=== PATIENT | female | born 1950 | race Caucasian/White ===

== ENCOUNTER → 2018-07-01 12:37 | Emergency (ER) | payer MEDICARE, OTHER ==
--- NOTE | 2018-07-01 15:57 | ED ---
Skin Complaint - HPI Summary HPI Summary: A 67 y/o F presents to ED with rash on L middle back onset 06/25/18. The area is erythematous, pruritic and painful. There are two scabbed areas. Associated sx: back pain wrapping around L-side. Denies fever, CP, cough, n/v, abd pain. Alleviating factors: Tylenol to mild relief. Patient went to get the shingles vaccination, but was unable to get it due to the cost. PMHx: HTN, DM, GERD. Takes Metformin BID, Pepcid 20 BID, and HTN medication. She sees Dr. Lujan, PCP. Vitals at bedside: 85 bpm, BP: 160/95; Sat O2: 99%. Home Medications Medication Instructions Recorded Confirmed Type HYDROcodone/ACETAMIN 5-325 MG* 1 tab PO Q6H PRN #12 tab MDD 4 07/01/18 Rx [[place] 5-325 TAB*] ValACYclovir (*) [Valtrex 1 GM(*)] 1 gm PO TID #21 tab 07/01/18 Rx - History of Current Complaint Chief Complaint: EDRashSkinAbscess Time Seen by Provider: 07/01/18 15:36 Stated Complaint: INFECTION ON BACK PER PT Hx Obtained From: Patient Onset/Duration: Started Days Ago - 06/25/18, Atraumatic, Still Present Skin Exposure Onset/Duration: Days Ago - 06/25/18 Timing: Constant Onset Severity: Moderate Current Severity: Moderate Pain Intensity: 6 Pain Scale Used: 0-10 Numeric Skin Location: Other: - back on L Character: Pruritus, Pain, Redness Aggravating Symptom(s): Nothing Alleviating Symptom(s): OTC Meds - Tylenol - Allergy/Home Medications Allergies/Adverse Reactions: Allergies Allergy/AdvReac Type Severity Reaction Status Date / Time No Known Allergies Allergy Verified 07/01/18 16:17 PMH/Surg Hx/FS Hx/Imm Hx Previously Healthy: No Endocrine/Hematology History: Reports: Hx Diabetes Cardiovascular History: Reports: Hx Hypertension GI History: Reports: Hx Gastroesophageal Reflux Disease Opthamlomology History: Denies: Hx Legally Blind EENT History: Denies: Hx Deafness Neurological History: Denies: Hx Dementia - Cancer History Hx Chemotherapy: No Hx Radiation Therapy: No - Surgical History Surgery Procedure, Year, and Place: , 33 years ago. R breast biopsy ( negative) Infectious Disease History: No Infectious Disease History: Denies: Traveled Outside the [place] in Last 30 Days - Family History Known Family History: Positive: Diabetes - brothers Family History: neg: Breast CA. pos: shingles - Social History Occupation: Retired Lives: With Family Alcohol Use: None Hx Substance Use: No Substance Use Type: Reports: None Hx Tobacco Use: No Smoking Status (MU): Never Smoked Tobacco Review of Systems Negative: Fever Negative: Chest Pain Negative: Cough Negative: Abdominal Pain, Vomiting, Nausea Positive: Rash - pain, itchy, red and with two scabs All Other Systems Reviewed And Are Negative: Yes Physical Exam - Summary Physical Exam Summary: Appearance: Ill-appearing, moderate pain distress, well-nourished Skin: Warm, color reflects adequate perfusion, dry. Two scabbed lesions and one pustule in the dermatone of L ribs on L posterior aspect. Head: Normal Head/Face inspection, atraumatic Eyes: Conjunctiva clear ENT: Normal inspection Neck: Supple, no nodes, no JVD Respiratory: Lungs clear, normal breath sounds, no respiratory distress Cardio: RRR, No murmur, pulses normal, brisk capillary refill Abdomen: Soft, nontender Musculoskeletal: Strength Intact/ROM intact, no calf tenderness, no edema. Psychological: Normal Neuro: Alert, muscle tone normal, no focal deficit Triage Information Reviewed: Yes Vital Signs On Initial Exam: Initial Vitals Temp Pulse Resp BP Pulse Ox 98.0 F 99 16 155/97 99 07/01/18 12:42 07/01/18 12:42 07/01/18 12:42 07/01/18 12:42 07/01/18 12:42 Vital Signs Reviewed: Yes Diagnostics - Vital Signs Vital Signs Temp Pulse Resp BP Pulse Ox 07/01/18 14:44 98.0 F 75 16 145/65 98 07/01/18 12:42 98.0 F 99 16 155/97 99 - Laboratory Lab Statement: Any lab studies that have been ordered have been reviewed, and results considered in the medical decision making process. Re-Evaluation - Re-Evaluation 1 Re-Evaluation Time: 16:22 Change: Unchanged Comment: Discussing findings and dx with now present. Course/Dx - Course Course Of Treatment: Patient is a 67 y/o F presenting with red, itchy and painful rash on L middle back onset 06/25/18. Associated sx: back pain wrapping around L-side. PE finds two scabbed lesions and one pustule in the dermatone of L ribs on L posterior aspect. POC glucose: 124. Allergies noted, high blood pressure noted. Pt medications reviewed this visit. Nurses note reviewed. Checked I-STOP. Will discharge patient home with Percocet for pain and to follow up with Dr. Lujan. - Diagnoses Provider Diagnoses: Herpes zoster infection of thoracic region, Poor high blood pressure control Discharge - Sign-Out/Discharge Documenting (check all that apply): Patient Departure - D/C Patient Received Moderate/Deep Sedation with Procedure: No - Discharge Plan Condition: Stable Disposition: HOME Prescriptions: HYDROcodone/ACETAMIN 5-325 MG* [[place] 5-325 TAB*] 1 tab PO Q6H PRN #12 tab MDD 4 PRN Reason: Pain ValACYclovir (*) [Valtrex 1 GM(*)] 1 gm PO TID #21 tab Patient Education Materials: Shingles (ED) Referrals: Cherelle Lujan DO [Primary Care Provider] - 2 Days Additional Instructions: You rash on the left side of your back was diagnosed as shingles today. The medical name is Herpes Zoster. Dr. Latif has prescribed valacyclovir that you should take 3 times a day for a week. This will help lessen the duration and severity of the shingles. Your diabetes was in good control, despite this infection. Your glucose was 124 on a fingerstick. Please continue all of your usual medications. If you have any new or worsening symptoms, please return to the ER. - Attestation Statements Document Initiated by Scribe: Yes Documenting Scribe: Drake Parker Provider For Whom Fernando is Documenting (Include Credential): Dr. Rubina Latif MD Scribe Attestation: Drake Ugalde scribed for Dr. Rubina Latif MD on 07/01/18 at 1374.
[2018-07-01 17:36] VITALS: BP 135/84
== END | disposition home or self-care (01) ==
LOC: ED 12:37
DX: B02.8 Zoster with other complications (principal); I10 Essential (primary) hypertension; E11.9 Type 2 diabetes mellitus without complications; K21.9 Gastro-esophageal reflux disease without esophagitis
CPT/HCPCS: 99282

== ENCOUNTER 2019-04-25 13:07 | Emergency (ER) | payer MEDICARE, OTHER ==
[2019-04-25 13:12] VITALS: BP 155/91
--- OUTSIDE RECORDS SUMMARY | 2019-04-25 13:20 | XMS REPORT | Continuity of Care Document ---
:1950 External Reference #:[id number] Author Name Cherelle Lujan DO (transmitted by agent of provider [employer]) Address [address] [place] [id number] Problems Active Problems Provider Date Adult health examination Onset: 10/05/2018 Chronic kidney disease Onset: 07/05/2018 Essential hypertension Onset: 12/04/2017 Vitamin D deficiency Onset: 07/10/2017 Obesity Onset: 07/09/2017 Hypothyroidism Onset: 07/09/2017 Hypertensive disorder Onset: 07/09/2017 Type 2 diabetes mellitus Onset: 07/09/2017 Diabetic peripheral neuropathy Onset: 07/09/2017 Depressive disorder Onset: 07/09/2017 Asthmatic bronchitis Onset: 07/09/2017 Chronic kidney disease stage 3 Cherelle Lujan DO Onset: 01/07/2019 Social History Type Date Description Comments Sex Unknown Allergies, Adverse Reactions, Alerts Active Allergies Reaction Severity Comments Date Citalopram No Reaction Indicated 10/22/2018 Medications Active Medications SIG Qnty Indications Ordering Date Provider Glipizide ER oral; take 1 90tabs Cherelle 01/07/2019 5mg tablet by mouth Eliezerw, DO Tablets ER 24HR every day Nasonex 1 [place] Each 17gm Melania Bruce, 10/27/2018 50mcg/Act Nostril Daily MD Suspension Amlodipine Besylate Oral 90tabs Unknown 09/21/2018 5mg Tablets Gabapentin Oral 270caps Unknown 09/21/2018 300mg Capsules Metformin HCL Oral 180tabs Unknown 09/21/2018 1000mg Tablets Atorvastatin Calcium 1 daily Oral 90tabs Unknown 08/02/2018 20mg Tablets Levothyroxine Sodium 1 daily Oral 90tabs Unknown 06/14/2018 50mcg Tablets Famotidine Take 1 Tablet By 180tabs Cherelle 03/09/2018 20mg Tablets Mouth Twice A Karnow, DO Day Lisinopril-Hydrochlor oral; take 1 90tabs Cherelle 12/04/2017 othiazide tablet by mouth EliezermanuelDO 20-12.5mg daily Tablets Vitamin D 1 daily Oral Unknown 12/04/2017 1000Unit Tablets Ventolin HFA 2 every 4 hours 1units Unknown 12/04/2017 Inhalation 108(90Base) mcg/Act Aerosol Aspirin 1 daily Oral 30tabs Unknown 06/25/2017 81mg Tablets Vitamin B12 Unknown History Medications Atrovent HFA 2 puffs inhalation 12.900gm Melania Barrera MD 10/27/2018 - twice a day 01/06/2019 17mcg/Act Aerosol Immunizations CPT Code Status Date Vaccine Lot # [id number] Given 01/07/2019 Flu High Dose [id number] 24069 Given 12/04/2017 Influenza Virus Vaccine, Quadrivalent, Split, Im Use 0.25ML 90548 Given 12/04/2017 Influenza Virus Vaccine, Quadrivalent, Split, Im Use 0.25ML 52857 Given 12/04/2017 Influenza Virus Vaccine, Quadrivalent, Split, Im Use 0.25ML 28905 Given 12/04/2017 Flu < 65 years 27118 Given 12/04/2017 Influenza Virus Vaccine, Quadrivalent, Split, Preservative Free 85132 Given 12/04/2017 Flumist 28728 Given 12/04/2017 Flu High Dose 41219 Given 12/04/2017 Influenza Virus Vaccine, Split, Preserv Free, Intradermal Use 37050 Given 12/17/2015 Pneumovax - for >=2years - PPSV23 45876 Given 12/07/2014 Prevnar 13 Vital Signs Date Vital Result Comment 01/07/2019 10:30am BP Systolic 132 mmHg BP Diastolic 68 mmHg Weight 250.00 lb Heart Rate 82 /min Body Temperature 97.9 F O2 % BldC Oximetry 96 % 10/27/2018 3:58pm BP Systolic 132 mmHg BP Diastolic 86 mmHg Weight 254.00 lb Heart Rate 107 /min Body Temperature 98.9 F O2 % BldC Oximetry 98 % Results Test Acquired Date Facility Test Result H/L Range Note Comp Metabolic 04/21/2019 [facility] Sodium 135 mmol/L Normal 135-[address] [place], [place] [id number] [phone] Potassium 4.8 mmol/L Normal 3.5-5.0 Chloride 101 mmol/L Normal 101-111 Co2 Carbon Dioxide 24 mmol/L Normal 22-32 Anion Gap 10 mmol/L Normal 2-11 Glucose 236 mg/dL High 70-100 Blood Urea Nitrogen 23 mg/dL Normal 6-24 Creatinine 1.21 mg/dL High 0.51-0.95 BUN/Creatinine Ratio 19.0 Normal 8-20 Calcium 9.4 mg/dL Normal 8.6-10.3 Total Protein 6.9 g/dL Normal 6.4-8.9 Albumin 3.8 g/dL Normal 3.2-5.2 Globulin 3.1 g/dL Normal 2-4 Albumin/Globulin Ratio 1.2 Normal 1-3 Total Bilirubin 0.50 mg/dL Normal 0.2-1.0 Alkaline Phosphatase 96 U/L Normal 34-104 Alt 27 U/L Normal 7-52 Ast 24 U/L Normal 13-39 Egfr Non- 44.1 >60 Egfr 53.4 >60 1 Laboratory test 04/21/2019 [facility] Hemoglobin A1c 7.3 % High 4.0-5.[address] ([facility] H[facility]) [place] [address] [phone] Basic Metabolic 12/30/2018 [facility] Sodium 136 Normal 135- [address] mmol/[place] [address] [phone] Potassium 4.8 mmol/L Normal 3.5-5.0 Chloride 103 mmol/L Normal 101-111 Co2 Carbon Dioxide 23 mmol/L Normal 22-32 Anion Gap 10 mmol/L Normal 2-11 Glucose 150 mg/dL High 70-100 Blood Urea Nitrogen 26 mg/dL High 6-24 Creatinine 1.16 mg/dL High 0.51-0.95 BUN/Creatinine Ratio 22.4 High 8-20 Calcium 9.5 mg/dL Normal 8.6-10.3 Egfr Non- 46.3 >60 Egfr 56.0 >60 3 Laboratory test 12/30/2018 [facility] Hemoglobin A1c 7.4 % High 4.0-5.[address] ([facility]) [place] [address] [phone] Hepatitis C 12/30/2018 [facility] HCV Index 0.05 s/c Antibody [address] [place] [address] [phone] Hepatitis C Antibody Negative Negative 1 Because ethnic data is not always readily available, this report includes an eGFR for both -Americans and non- Americans. The National Kidney Disease Education Program (NKDEP) does not endorse the use of the MDRD equation for patients that are not between the ages of 18 and 70, are , have extremes of body size, muscle mass, or nutritional status, or are non- or non-. According to the National Kidney Foundation, irrespective of diagnosis, the stage of the disease is based on the level of kidney function: Stage Description GFR(mL/min/1.73 m(2)) 1 Kidney damage with normal or decreased GFR 90 2 Kidney damage with mild decrease in GFR 60-89 3 Moderate decrease in GFR 30-59 4 Severe decrease in GFR 15-29 5 Kidney failure <15 (or dialysis) 2 Therapeutic target for the treatment of diabetes mellitus patients is <7% HBA1C, and in selective patients <6.0%. Please refer to [place] [employer] Association diabetic care guidelines for further information. 3 Because ethnic data is not always readily available, this report includes an eGFR for both -Americans and non- Americans. The National Kidney Disease Education Program (NKDEP) does not endorse the use of the MDRD equation for patients that are not between the ages of 18 and 70, are , have extremes of body size, muscle mass, or nutritional status, or are non- or non-. According to the National Kidney Foundation, irrespective of diagnosis, the stage of the disease is based on the level of kidney function: Stage Description GFR(mL/min/1.73 m(2)) 1 Kidney damage with normal or decreased GFR 90 2 Kidney damage with mild decrease in GFR 60-89 3 Moderate decrease in GFR 30-59 4 Severe decrease in GFR 15-29 5 Kidney failure <15 (or dialysis) 4 Therapeutic target for the treatment of diabetes mellitus patients is <7% HBA1C, and in selective patients <6.0%. Please refer to [place] [employer] Association diabetic care guidelines for further information. Procedures Description No Information Available Medical Devices Description No Information Available Encounters Type Date Location Provider Dx Diagnosis Office Visit 01/07/2019 ALEC Hammernow, DO I10 Essential ( primary) 10:30a hypertension E11.9 Type 2 diabetes mellitus without complications N18.3 Chronic kidney disease, stage 3 (moderate) Z23 Encounter for immunization Office Visit 10/27/2018 3:30p [facility] Melania Barrera MD J20.9 Acute bronchitis, unspecified T78.40xA Allergy, unspecified, initial encounter Assessments Date Code Description Provider 01/07/2019 I10 Essential (primary) hypertension Cherelle Karteresa, DO 01/07/2019 E11.9 Type 2 diabetes mellitus without Cherelle Karteresa, DO complications 01/07/2019 N18.3 Chronic kidney disease, stage 3 (moderate) Cherelle Lujan , DO 01/07/2019 Z23 Encounter for immunization Cherelle Lujan, 10/27/2018 J20.9 Acute bronchitis, unspecified Melania Barrera MD 10/27/2018 T78.40xA Allergy, unspecified, initial encounter Melania Barrera MD Plan of Treatment Future Appointment(s):04/28/2019 10:15 am - Cherelle Lujan, DO at [facility] - Cherelle Le, DOI10 Essential (primary) hypertensionComments:Well controlled on current meds No side effects Labs stable Discussed importance of keeping this at goal to prevent progressing of her CKDE11.9 Type 2 diabetes mellitus without complicationsComments:HgA1c up again We discussed pushing the ds a bit - she does not want a new med but is willing to increase her Glipizide dose from 2.5mg to 5mg daily, so this is what we will do Continue MetforminContinue to work on lifestyle changesRepeat labs in 3 months to see hows meds are [id number] Chronic kidney disease, stage 3 (moderate)Comments: Stable - discussed importance of diabetes and HTN management to avoid the progression of this Avoid NSAIDsMonitor [id number] Encounter for immunizationAllNew Medication:Glipizide ER 5 mg - oral; take 1 tablet by mouth every day Functional Status Description No Information Available Mental Status Description No Information Available Referrals Description No Information Available
--- NOTE | 2019-04-26 08:15 | ED ---
Lower Extremity - HPI Summary HPI Summary: This patient is a 68-year-old female presenting to the ED with right foot injury. Patient states she is having pain to the right heel as well as to the posterior heel. Sxs have been present x 2 days and have been getting worse. She states she is - History of Current Complaint Chief Complaint: EDExtremityLower Stated Complaint: RIGHT FOOT PAIN PER PT Time Seen by Provider: 04/25/19 14:10 Pain Intensity: 2 - Allergies/Home Medications Allergies/Adverse Reactions: Allergies Allergy/AdvReac Type Severity Reaction Status Date / Time No Known Allergies Allergy Verified 04/25/19 13:09 Home Medications: Home Medications Albuterol HFA INHALER* [Ventolin HFA Inhaler*] 2 puff INH Q6H PRN 07/01/18 [ History Confirmed 07/01/18] Atorvastatin* [Lipitor*] 20 mg PO DAILY 07/01/18 [History Confirmed 07/01/18] Famotidine TAB* [Pepcid 20 MG TAB*] 20 mg PO BID 07/01/18 [History Confirmed ] HYDROcodone/ACETAMIN 5-325 MG* [[place] 5-325 TAB*] 1 tab PO Q6H PRN #12 tab MDD 4 07/01/18 [Rx] Levothyroxine TAB* [Synthroid TAB*] 50 mcg PO DAILY 07/01/18 [History Confirmed 07/01/18] Lisinopril/HCTZ 20/12.5(NF) [Zestoretic 20/12.5(NF)] 1 tab PO DAILY 07/01/18 [ History Confirmed 07/01/18] ValACYclovir (*) [Valtrex 1 GM(*)] 1 gm PO TID #21 tab 07/01/18 [Rx] amLODIPine TAB* [Norvasc 5 mg TAB*] 5 mg PO DAILY 07/01/18 [History Confirmed ] metFORMIN* [Glucophage 1000 MG TAB *] 1,000 mg PO BID 07/01/18 [History Confirmed 07/01/18] PMH/Surg Hx/FS Hx/Imm Hx Endocrine/Hematology History: Reports: Hx Diabetes Cardiovascular History: Reports: Hx Hypertension GI History: Reports: Hx Gastroesophageal Reflux Disease Sensory History: Denies: Hx Legally Blind, Hx Deafness Opthamlomology History: Denies: Hx Legally Blind Neurological History: Denies: Hx Dementia - Cancer History Hx Chemotherapy: No Hx Radiation Therapy: No - Surgical History Surgery Procedure, Year, and Place: , 33 years ago. R breast biopsy ( negative) Infectious Disease History: No Infectious Disease History: Denies: Traveled Outside the [place] in Last 30 Days - Family History Known Family History: Positive: Diabetes - brothers Family History: neg: Breast CA. pos: shingles - Social History Alcohol Use: None Hx Substance Use: No Substance Use Type: Reports: None Hx Tobacco Use: No Smoking Status (MU): Never Smoked Tobacco Physical Exam Vital Signs On Initial Exam: Initial Vitals Temp Pulse Resp BP Pulse Ox 98.1 F 98 18 155/91 98 04/25/19 13:09 04/25/19 13:09 04/25/19 13:09 04/25/19 13:09 04/25/19 13:09 Diagnostics - Vital Signs Vital Signs Temp Pulse Resp BP Pulse Ox 04/25/19 13:09 98.1 F 98 18 155/91 98 - Laboratory Lab Statement: Any lab studies that have been ordered have been reviewed, and results considered in the medical decision making process. Discharge ED - Discharge Plan Condition: Stable Disposition: HOME Patient Education Materials: Shannon Tarango (ED) Referrals: Cherelle Lujan DO [Primary Care Provider] - Kobi Oropeza MD [Medical Doctor] - Additional Instructions: Please follow up with Dr. Castillo - Billing Disposition and Condition Condition: STABLE Disposition: Home
== END 2019-04-25 15:23 | disposition home or self-care (01) ==
LOC: ED 13:07
DX: M77.31 Calcaneal spur, right foot (principal); M85.871 Other specified disorders of bone density and structure, right ankle and foot; M19.071 Primary osteoarthritis, right ankle and foot; E11.9 Type 2 diabetes mellitus without complications; Z79.84 Long term (current) use of oral hypoglycemic drugs; I10 Essential (primary) hypertension; K21.9 Gastro-esophageal reflux disease without esophagitis; Z79.899 Other long term (current) drug therapy
CPT/HCPCS: 99281

== ENCOUNTER 2024-01-04 14:47 | Observation (INO) ==
[2024-01-04] MEDS: Iodixanol 320 (CONTRAST) 100 ML SDV IV ONE (15:11)
[2024-01-04 15:20] LABS: ABS Eosinophils 0.3 10^3/uL (0.0-0.5); ABS Lymphocytes 1.8 10^3/uL (1.0-4.8); ABS Monocytes 0.4 10^3/uL (0.0-0.9); ABS Nucleated RBC 0.01 10^3/ul; Eosinophil % 4.5 %; Hematocrit 35.8 % (35-45); Hemoglobin 11.9 g/dL (11.5-14.3); Lymphocyte % 23.7 %; Mean Corpuscular Hemoglobin 30.8 pg (27-33); Mean Corpuscular Hgb Conc 33.4 g/dL (31-36); Mean Corpuscular Volume 92.3 fL (80-97); Mean Platelet Volume 8.3 fL (7.5-11.2); Nucleated Red Blood Cells % 0.1 %/100WBC (0.0-0.8); Platelet Count 256 10^3/uL (150-450); Red Blood Count 3.88 10^6/uL (3.63-4.92); White Blood Count 7.6 10^3/uL (3.8-11.8)
[2024-01-04 15:30] LABS: Activated Partial Thrombo Time 31.9 seconds (26.0-38.0); INR 0.91 (0.85-1.14)
[2024-01-04 15:37] LABS: Albumin 4.2 g/dL (3.2-5.2); Albumin/Globulin Ratio 1.3 (1-3); Calcium 9.7 mg/dL (8.6-10.3); Creatinine, Serum 1.37 mg/dL (0.51-0.95); Direct Bilirubin 0.1 mg/dL (0.03-0.18); Globulin 3.2 g/dL (2-4); HDL Cholesterol 61.4 mg/dL; Indirect Bilirubin 0.3 mg/dL (0.3-1.0); Potassium 4.4 mmol/L (3.5-5.0); Total Bilirubin 0.4 mg/dL (0.2-1.0); Total Protein 7.4 g/dL (6.4-8.9); eGFR CKD-EPI 40.5 (>60)
[2024-01-04] MEDS ORDERED: Albuterol HFA INHALER 8 gm MDI INH PRN (17:22)
[2024-01-04] MEDS ORDERED: Dextrose 50% Syringe 50 ml 25 GM/50 ML SYRINGE IV PUSH PRN (17:31)
[2024-01-04 19:49] LABS: Urine Appearance Clear; Urine Bilirubin Negative (Negative); Urine Blood Negative (Negative); Urine Color Yellow; Urine Glucose Negative (Negative); Urine Ketones Negative (Negative); Urine Nitrite Negative (Negative); Urine Protein Negative (Negative); Urine Specific Gravity 1.026 (1.002-1.030); Urine Urobilinogen Negative (Negative); Urine pH 5.5 (5.0-8.0)
[2024-01-04] MEDS: Aspirin EC 81 mg TAB.EC (enteric coated) PO SCH (22:19)
[2024-01-05 08:08] LABS: ABS Basophils 0.1 10^3/uL (0.0-0.1); ABS Eosinophils 0.3 10^3/uL (0.0-0.5); ABS Lymphocytes 1.4 10^3/uL (1.0-4.8); ABS Monocytes 0.4 10^3/uL (0.0-0.9); Eosinophil % 5.2 %; Hematocrit 31.7 % (35-45); Hemoglobin 10.8 g/dL (11.5-14.3); Lymphocyte % 22.9 %; Mean Corpuscular Hemoglobin 31.4 pg (27-33); Mean Corpuscular Hgb Conc 34.1 g/dL (31-36); Mean Platelet Volume 8.2 fL (7.5-11.2); Platelet Count 226 10^3/uL (150-450); Red Blood Count 3.45 10^6/uL (3.63-4.92); Red Cell Distribution Width 13.9 % (12-17); White Blood Count 6.2 10^3/uL (3.8-11.8)
[2024-01-05] MEDS: Anastrozole 1 mg TAB (NF) PO SCH (08:55)
[2024-01-05 09:00] LABS: Calcium 9.1 mg/dL (8.6-10.3); Creatinine, Serum 1.34 mg/dL (0.51-0.95); Magnesium 1.5 mg/dL (1.9-2.7); Potassium 4.8 mmol/L (3.5-5.0); eGFR CKD-EPI 41.6 (>60)
[2024-01-05] MEDS ORDERED: Magnesium Sulf 4 GM/100 ML IV 4,000 MG/100 ML BAG IVPB ONE (09:13)
[2024-01-05] MEDS: Magnesium Sulf 4 GM/100 ML IV 4,000 MG/100 ML BAG IVPB ONE (09:19)
[2024-01-05] MEDS: Sulfur Hexaflouride MICROSPHR 25 MG VIAL IV PRN (09:22)
[2024-01-05 15:46] VITALS: BP 138/85
== END 2024-01-05 16:42 | disposition home or self-care (01) ==
LOC: EDHOLD 14:47 → ED 14:47 → MEDTELE 01-05 11:17
PROVIDERS: ADMIT Internal Medicine; ATTEND Internal Medicine